=== PATIENT | female | born 1940 | race Caucasian/White ===

== ENCOUNTER → 2016-09-04 | Outpatient (CLI) | payer MEDICARE, OTHER ==
--- NOTE | 2016-09-04 10:30 | Diagnostic Imaging Report ---
PROCEDURE: CT sinuses without contrast TECHNIQUE: Multiple contiguous axial images were obtained through the sinuses without the use of intravenous contrast. Coronal and sagittal reformations were then performed. INDICATION: Chronic sinusitis. FINDINGS: Chronic sinusitis. COMPARISON: 02/03/2013 exam. FINDINGS: There is evidence of prior sinonasal surgery with resection of portions of the medial wall of the left maxillary sinus. Anterior and medial screws along the maxillary sinus wall bilaterally and anterior lateral similar screws and small plates also seen. There is no significant mucosal thickening in the maxillary sinuses or in the sphenoidal or frontal sinuses. There is mild mucosal thickening along the anterior ethmoidal air cells more on the left side. The mastoid air cells and the middle ear cavities appear clear. The orbits appear grossly unremarkable. The nasal cavity demonstrates mild nasal septal deviation anteriorly to the left. There is an aerated makenna bullosa on the right side. Mild mucosal thickening along the inferior turbinates seen with no significant narrowing of the nasal passages. IMPRESSION: Postsurgical changes in the maxillary sinuses. There is mild mucosal thickening in the anterior ethmoidal air cells, otherwise, the paranasal sinuses are clear. Dictated by: Dictated on workstation # [id number]
== END ==
LOC: RAD 09:35
PROVIDERS: ATTEND Otolaryngology Otolaryngology/Facial Plastic Surgery
DX: J32.2 Chronic ethmoidal sinusitis (principal)
CPT/HCPCS: 70486

== ENCOUNTER → 2016-09-24 | Outpatient (CLI) | payer MEDICARE, OTHER ==
--- NOTE | 2016-09-24 19:19 | Diagnostic Imaging Report ---
Bilateral screening mammogram The current study was also evaluated with a Computer Aided Detection (CAD) system. INDICATION: Screening. No current complaints stated on the questionnaire. COMPARISON: 11/30/14. FINDINGS: The breasts are composed of heterogeneously dense parenchyma which may decrease mammographic sensitivity. There are scattered benign-appearing calcifications. Allowing for technique and positional differences, no suspicious change is seen. IMPRESSION: Dense breasts with no definite change. ACR BI-RADS Category 2: Benign findings. Result letter will be mailed to the patient. Note: At least 10% of breast cancer is not imaged by mammography. Dictated by: Dictated on workstation # [id number]
== END ==
LOC: RAD 10:09
PROVIDERS: ATTEND Internal Medicine
DX: Z12.31 Encounter for screening mammogram for malignant neoplasm of breast (principal)
CPT/HCPCS: 77067

== ENCOUNTER 2017-02-26 10:47 | Outpatient (RCR) | payer MEDICARE, OTHER | END 2017-05-27 | disposition home or self-care (01) | LOC: CARD 10:47 | PROVIDERS: ATTEND Internal Medicine | DX: R00.2 Palpitations (principal) | CPT/HCPCS: 93225; 93226 ==

== ENCOUNTER → 2017-12-23 | Outpatient (CLI) | payer MEDICARE, OTHER ==
--- NOTE | 2017-12-23 12:29 | Diagnostic Imaging Report ---
INDICATION: Routine screening. Comparison is made with prior mammograms from 09/24/2016 and 11/30/2014. 2-D and 3-D bilateral screening mammography was performed. The current study was also evaluated with a Computer Aided Detection (CAD) system. FINDINGS: Scattered fibroglandular densities are identified bilaterally. Benign nodular densities in right breast are noted. No spiculated mass or malignant-appearing microcalcifications are seen. There are benign calcifications present. The axillae are unremarkable. IMPRESSION: No mammographic features suspicious for malignancy are identified. ACR BI-RADS Category 2: Benign findings. Result letter will be mailed to the patient. Note: At least 10% of breast cancer is not imaged by mammography. Dictated by: Dictated on workstation # [id number]
== END ==
LOC: RAD 11:05
PROVIDERS: ATTEND Internal Medicine
DX: Z12.31 Encounter for screening mammogram for malignant neoplasm of breast (principal)
CPT/HCPCS: 77067

== ENCOUNTER → 2019-01-20 | Outpatient (CLI) | payer MEDICARE, OTHER ==
--- NOTE | 2019-01-20 22:32 | Diagnostic Imaging Report ---
INDICATION: Medial foot pain. FINDINGS: Three-view right foot showed no fracture, dislocation or acute articular incongruity. IMPRESSION: No acute appearing abnormality. Dictated by: Dictated on workstation # [id number]
== END ==
LOC: RAD 16:59
PROVIDERS: ATTEND Nurse Practitioner Family
DX: M79.671 Pain in right foot (principal)
CPT/HCPCS: 73630

== ENCOUNTER 2019-04-07 10:51 | Outpatient (RCR) | payer MEDICARE, OTHER | END 2019-05-15 09:22 | disposition home or self-care (01) | PROVIDERS: ATTEND Internal Medicine | DX: M75.101 Unspecified rotator cuff tear or rupture of right shoulder, not specified as traumatic (principal) ==

== ENCOUNTER → 2019-05-05 | Outpatient (CLI) | payer MEDICARE, OTHER ==
--- NOTE | 2019-05-05 13:44 | Diagnostic Imaging Report ---
INDICATION: Routine screening. COMPARISON: Comparison is made with prior mammograms from 12/23/2017 and 09/24/2016. TECHNIQUE: 2-D and 3-D bilateral screening mammography was performed. The current study was also evaluated with a Computer Aided Detection (CAD) system. 3-D tomosynthesis was also performed and reviewed. FINDINGS: Both breasts are heterogeneously dense, limiting the sensitivity of mammography. There are benign calcifications bilaterally. No spiculated mass or malignant-appearing microcalcifications are seen. Axillae are unremarkable. IMPRESSION: No mammographic features suspicious for malignancy are identified. ACR BI-RADS Category 2: Benign findings. Result letter will be mailed to the patient. Note: At least 10% of breast cancer is not imaged by mammography. Dictated by: Dictated on workstation # [id number]
== END ==
LOC: RAD 10:52
PROVIDERS: ATTEND Internal Medicine
DX: Z12.31 Encounter for screening mammogram for malignant neoplasm of breast (principal)
CPT/HCPCS: 77067

== ENCOUNTER → 2020-02-06 | Outpatient (CLI) | payer MEDICARE, OTHER ==
--- NOTE | 2020-02-06 13:28 | Diagnostic Imaging Report ---
INDICATION: Postmenopausal state. COMPARISON: August 22, 2015 FINDINGS: AP Spine L1-L4: [BMD (g/cm2): 0.948] [T-Score: -2.1] [Z-Score: -0.3] [BMD Previous: 0.943] [BMD % Change: 0.5] LT Hip Neck: [BMD (g/cm2): 0.653] [T-Score: -2.8] [Z-Score: -0.6] LT Hip Total: [BMD (g/cm2):0.776] [T-Score:-1.8] [Z-Score: 0.2] [BMD Previous: 0.803] [BMD % Change: -3.4] RT Hip Neck: [BMD (g/cm2):0.702] [T-Score:-2.4] [Z-Score:-0.2] RT Hip Total: [BMD (g/cm2):0.758] [T-score:-2.0] [Z-Score:0.1] [BMD Previous:0.780] [BMD % Change:-2.8] *Indicates significant change from prior examination based on 95% confidence level. World Health Organization criteria for BMD interpretation classify patients as Normal (T-score at or above -1.0), Osteopenic (T-score between -1.0 and -2.5) or Osteoporotic (T-score at or below -2.5). LIMITATIONS AND MODIFICATION: None. FRACTURE RISK (FRAX SCORE): The ten year probability of (%): Major Osteoporotic Fracture: [22.4] Hip Fracture: [8.9] IMPRESSION: 1. Osteoporosis. 2. No significant change in bone mineral density since prior examination. 3. See below National Osteoporosis Foundation guidelines on when to potentially initiate pharmacologic therapy. Based on the National Osteoporosis Foundation Guidelines, pharmacologic treatment should be initiated in any of the following, unless clinical conditions suggest otherwise: * Any patient with prior fragility fracture of the hip or vertebrae. A spine fracture indicates 5X risk for subsequent spine fracture and 2X risk for subsequent hip fracture. * Osteoporosis (T-score <-2.5). * Postmenopausal women and men age 50 and older with low bone mass/osteopenia (T-score between -1.0 and -2.5) by DXA and 10-year major osteoporotic fracture greater than 20% or a 10-year probability of hip fracture greater than 3%. These fracture risks are supplied above in the FRAX score, if applicable. * Clinician judgement and/or patient preferences may indicate treatment for people with 10-year fracture probabilities above or below these levels. Dictated by: Dictated on workstation # [id number]
== END ==
LOC: RAD 12:30
PROVIDERS: ATTEND Nurse Practitioner Family
DX: M85.80 Other specified disorders of bone density and structure, unspecified site (principal); M81.0 Age-related osteoporosis without current pathological fracture; Z78.0 Asymptomatic menopausal state
CPT/HCPCS: 77080

== ENCOUNTER → 2020-08-07 | Outpatient (CLI) | payer MEDICARE, OTHER ==
--- NOTE | 2020-08-09 08:43 | Diagnostic Imaging Report ---
EXAMINATION: Digital mammogram bilateral screening with CAD. INDICATION: Screening. COMPARISON: This study was compared to the prior exams of 05/05/2019, 12/23/2017, and 09/24/2016. PERSONAL HISTORY: At this time, there are no current complaints. FINDINGS: The fibroglandular tissue in both breasts is heterogeneously dense. This does limit the sensitivity of this exam. Overall, there does not appear to have been any significant change when compared to the prior study. No primary or secondary sign of malignancy is noted. IMPRESSION: There is no radiographic evidence for malignancy. ACR BI-RADS Category 1: Negative. Result letter will be mailed to the patient. Note: At least 10% of breast cancer is not imaged by mammography. Dictated on workstation # [id number]
== END ==
LOC: RAD 15:01
PROVIDERS: ATTEND Internal Medicine
DX: Z12.31 Encounter for screening mammogram for malignant neoplasm of breast (principal)
CPT/HCPCS: 77063; 77067

== ENCOUNTER → 2020-09-02 | Outpatient (CLI) | payer MEDICARE, OTHER ==
--- NOTE | 2020-09-02 15:57 | Diagnostic Imaging Report ---
INDICATION: Low back pain. Lumbar spine. AP and lateral views of the lumbar spine show grade 1 spondylolisthesis at L5-S1. There is disc space narrowing at T12-L1 and L1-L2 with Modic changes of the opposing vertebral endplates and osteophytes forming at the vertebral body margins. IMPRESSION: Marked severe degenerative disc changes at T12-L1 and L1-L2. There are also advanced degenerative disc changes at L5-S1 with grade 1 spondylolisthesis and vacuum disc phenomenon. Dictated by: Dictated on workstation # [id number]
== END ==
LOC: RAD 15:12
PROVIDERS: ATTEND Nurse Practitioner Family
DX: M51.15 Intervertebral disc disorders with radiculopathy, thoracolumbar region (principal); M51.16 Intervertebral disc disorders with radiculopathy, lumbar region; M51.37 Other intervertebral disc degeneration, lumbosacral region; M43.17 Spondylolisthesis, lumbosacral region; I10 Essential (primary) hypertension
CPT/HCPCS: 72100

== ENCOUNTER 2020-10-10 10:48 | Outpatient (RCR) | payer MEDICARE, OTHER | END 2020-11-11 09:45 | disposition home or self-care (01) | PROVIDERS: ATTEND Nurse Practitioner Family | DX: M54.5 Low back pain (principal); M54.10 Radiculopathy, site unspecified; R53.1 Weakness; M79.606 Pain in leg, unspecified; M43.10 Spondylolisthesis, site unspecified ==

== ENCOUNTER → 2021-05-28 | Outpatient (CLI) | payer MEDICARE, OTHER ==
--- NOTE | 2021-05-28 14:46 | Diagnostic Imaging Report ---
INDICATION: Low back pain and spinous process tenderness. TIME OF EXAM: 2:07 PM. EXAMINATION: Three views of the lumbar spine were obtained. FINDINGS: Curvature and alignment of the lumbar spine is normal. Vertebral body heights are maintained. No acute compression fracture is seen. There is significant degenerative disc disease at the L1-L2 level with disc space narrowing and marginal spurring as well as vacuum disc phenomena. There is also L5-S1 degenerative disc disease. There is very slight anterolisthesis of L5 on S1. The abdominal aorta is heavily calcified. IMPRESSION: Lumbar spondylosis. No acute bony abnormality is detected. Dictated by: Dictated on workstation # [id number]
--- NOTE | 2021-05-28 15:12 | Diagnostic Imaging Report ---
INDICATION: Spinous process tenderness as well as left SI joint pain. TIME OF EXAM: 2:08 PM Multiple views of the sacroiliac joints were obtained. SI joints appear unremarkable. No ankylosis is seen. No sclerosis or osseous erosive changes are seen. IMPRESSION: No acute abnormality is detected. Dictated by: Dictated on workstation # [id number]
== END ==
LOC: RAD 13:35
PROVIDERS: ATTEND Nurse Practitioner Family
DX: M47.816 Spondylosis without myelopathy or radiculopathy, lumbar region (principal); M54.6 Pain in thoracic spine
CPT/HCPCS: 72100; 72202

== ENCOUNTER 2021-06-13 14:22 | Outpatient (RCR) | payer MEDICARE, OTHER | END 2021-06-16 | disposition home or self-care (01) | PROVIDERS: ATTEND Nurse Practitioner Family | DX: M54.16 Radiculopathy, lumbar region (principal) ==

== ENCOUNTER 2021-06-17 14:13 | Outpatient (RCR) | payer MEDICARE, OTHER | END 2021-07-14 | disposition home or self-care (01) | PROVIDERS: ATTEND Nurse Practitioner Family | DX: M54.16 Radiculopathy, lumbar region (principal) ==

== ENCOUNTER → 2021-07-07 | Outpatient (CLI) | payer MEDICARE, OTHER ==
--- NOTE | 2021-07-07 14:20 | Diagnostic Imaging Report ---
PROCEDURE: MRI lumbar spine. TECHNIQUE: Multiplanar, multisequence MRI of the lumbar spine was performed without contrast. INDICATION: Low back pain. Spondylolisthesis. COMPARISON: Lumbar spine radiographs 05/28/2021. FINDINGS: There are 5 lumbar-type vertebral bodies for the purposes of this report. Grade 1 retrolisthesis of L1 on L2 and anterolisthesis of L5 on S1. Modic type I degenerative endplate changes at L1-L2. Bone marrow signal is otherwise unremarkable. Visualized paravertebral soft tissues are unremarkable. No abnormal signal in the conus which terminates at L1-L2. Normal morphology of the cauda equina. T12-L1: Annular disc bulging and ligamentous hypertrophy result in mild spinal canal narrowing. Moderate right neural foraminal narrowing. L1-L2: The retrolisthesis combines with an annular disc bulge and ligamentous hypertrophy result in jauu-ky-jchrevjk spinal canal stenosis and bilateral neural foraminal narrowing. Moderate to severe bilateral neural foraminal narrowing. L2-L3: Annular disc bulge, ligamentous hypertrophy and facet arthropathy result in moderate spinal canal stenosis. Moderate bilateral neural foraminal narrowing. L3-L4: Annular disc bulge, ligamentous hypertrophy and facet arthropathy all result in moderate to severe spinal canal stenosis. Moderate bilateral neural foraminal narrowing. L4-L5: Central disc protrusion and ligamentous hypertrophy result in moderate to severe spinal canal stenosis. Moderate to severe bilateral neural foraminal narrowing. L5-S1: No substantial spinal canal or lateral recess narrowing. Severe right and moderate left neural foraminal narrowing. IMPRESSION: 1. Spondylotic changes result in multilevel high-grade spinal canal stenosis which is greatest at L3-L4 and L4-L5 where it is moderate to severe. 2. Multilevel high-grade neural foraminal narrowing detailed above. 3. Modic type I degenerative endplate changes at L1-L2. Dictated by: Dictated on workstation # [id number]
== END ==
LOC: RAD 12:30
PROVIDERS: ATTEND Orthopaedic Surgery Orthopaedic Surgery of the Spine
DX: M48.07 Spinal stenosis, lumbosacral region (principal); M51.26 Other intervertebral disc displacement, lumbar region; M47.816 Spondylosis without myelopathy or radiculopathy, lumbar region; M51.25 Other intervertebral disc displacement, thoracolumbar region; M48.05 Spinal stenosis, thoracolumbar region; M43.17 Spondylolisthesis, lumbosacral region
CPT/HCPCS: 72148

== ENCOUNTER → 2022-05-14 | Outpatient (CLI) | payer MEDICARE, OTHER | LOC: CARD 10:03 | PROVIDERS: ATTEND Nurse Practitioner Family | DX: I10 Essential (primary) hypertension (principal); R01.1 Cardiac murmur, unspecified | CPT/HCPCS: 93005 ==

== ENCOUNTER → 2022-05-20 | Outpatient (CLI) | payer MEDICARE, OTHER ==
[~2022-05-20] MED LIST: GADOTERATE 0.5 MMOL/ML (CLARISCAN) 15 ML VIAL IV ONE
--- NOTE | 2022-05-20 13:49 | Diagnostic Imaging Report ---
PROCEDURE: MR imaging of the brain with and without contrast. TECHNIQUE: Multiplanar, multisequence MR imaging of the brain was performed with and without contrast. INDICATION: Memory problems. COMPARISON: none FINDINGS: No acute ischemia, mass, or hemorrhage. No abnormal enhancement. Focal and confluent T2 hyperintense signal are seen in the periventricular and subcortical white matter. The ventricles and cortical sulci are mildly prominent. The basilar cisterns are symmetric and unremarkable. The sellar and suprasellar regions have a normal appearance. The brainstem and posterior fossa are unremarkable. The paranasal sinuses and mastoid air cells demonstrate normal signal characteristics. The globes and orbits are symmetric and unremarkable. The scalp and calvarium have a normal appearance. IMPRESSION: 1. No acute ischemia, mass, or hemorrhage. No abnormal enhancement. 2. Focal and confluent T2 hyperintense signal in the periventricular and subcortical white matter, most suggestive of chronic microvascular disease. 3. Mild parenchymal volume loss. Dictated by: Dictated on workstation # [id number]
== END ==
LOC: RAD 11:49
PROVIDERS: ATTEND Nurse Practitioner Family
DX: R41.3 Other amnesia (principal)
CPT/HCPCS: 70553

== ENCOUNTER → 2022-06-24 | Outpatient (CLI) | payer MEDICARE, OTHER | LOC: CARD 09:19 | PROVIDERS: ATTEND Internal Medicine Cardiovascular Disease | DX: I35.8 Other nonrheumatic aortic valve disorders (principal) | CPT/HCPCS: 93306 ==

== ENCOUNTER → 2022-07-14 | Outpatient (CLI) | payer MEDICARE, OTHER ==
[~2022-07-14] MED LIST changes: +CATHETER FLUSH 10 ML SYR IVP PRN; -GADOTERATE 0.5 MMOL/ML (CLARISCAN) 15 ML VIAL IV ONE; +REGADENOSON 0.4 MG/5 ML SYR (LEXISCAN) IV ONE
[2022-07-14 09:27] VITALS: BP 163/85
--- NOTE | 2022-07-14 18:02 | STRESS TEST ---
DATE OF SERVICE: 07/14/2022 RESTING AND POST REGADENOSON TECHNETIUM-99M TETROFOSMIN SPECT CT IMAGING ORDERING PHYSICIAN: Dr. Vargas. PRIMARY PHYSICIAN: Dr. Daniel. CLINICAL DIAGNOSIS: Shortness of breath. Baseline images were carried out after injection of 10.96 mCi technetium-99m tetrofosmin. This was followed by 0.4 mg regadenoson and 31.1 mCi of technetium-99m tetrofosmin for stress imaging. The electrocardiogram showed sinus rhythm at baseline. It did not change significantly with regadenoson infusion. The patient tolerated the procedure well. Review of images at rest and following stress does not indicate any significant perfusion defects consistent with myocardial ischemia or infarction. Gated images show normal global left ventricular systolic function with normal regional wall motion. Left ventricular ejection fraction is calculated to be 66%. CONCLUSIONS: 1. No evidence of any significant myocardial ischemia or infarction on this study. 2. Normal regional wall motion. 3. Normal global left ventricular systolic function with a calculated ejection fraction of 66%. Job ID: [id number] DocumentID: [id number] Dictated Date: 07/14/2022 17:30:37 Datastage Consultant Date: 07/14/2022 18:01:00 Dictated By: EDGARDO VARGAS MD; YAZ; FACP; FACC;
== END ==
LOC: CARD 07:38
PROVIDERS: ATTEND Internal Medicine Cardiovascular Disease
DX: R06.09 Other forms of dyspnea (principal)
CPT/HCPCS: 78452; 93017; A9502

== ENCOUNTER 2022-08-20 19:07 | Emergency (ER) | payer MEDICARE, OTHER ==
[~2022-08-20] VITALS: Ht 165.1 cm; Wt 69.2 kg
[2022-08-20] MEDS ORDERED: LOSA100T57 (19:17)
[2022-08-20] MEDS ORDERED: ESCI-2 (19:17)
[2022-08-20] MEDS ORDERED: ATOR10TA66 (19:17)
[2022-08-20] MEDS ORDERED: IRBE150T23 (19:17)
[2022-08-20] MEDS ORDERED: hydrALAZINE (APESOLINE) 20 MG/ML VIAL IV ONE (19:30)
[2022-08-20 19:31] LABS: HEMATOCRIT 42 % (35-52); HEMOGLOBIN 13.8 g/dL (11.5-16.0); MEAN CORPUSCULAR HEMOGLOBIN 31 pg (25-34); MEAN CORPUSCULAR HGB CONC 33 g/dL (32-36); MEAN CORPUSCULAR VOLUME 93 fL (80-99); MEAN PLATELET VOLUME 9.9 fL (9.0-12.2); PLATELET COUNT 234 10^3/uL (130-400); WHITE BLOOD COUNT 6.4 10^3/uL (4.3-11.0)
--- NOTE | 2022-08-20 19:38 | ED Cardiac General ---
History of Present Illness General Chief Complaint: Cardiac/General Problems Stated Complaint: BLOOD PRESHURE HIGH Nursing Triage Note: c/o headache resolved, high blood pressure. Source: patient History of Present Illness Date Seen by Provider: Aug 20, 2022 Time Seen by Provider: 19:22 Initial Comments PT ARRIVES VIA POV FROM HOME WITH DAUGHTER PT HAS HISTORY OF HTN--IS PRESCRIBED IRBESARTAN SHE WAS ON 300 MG DAILY, AND IT WAS DECREASED TO 150 MG DAILY ON 07/15/22, DUE TO ORTHOSTATIC HYPOTENSION--STATES HER BP DROPPED 20 POINTS WHEN SHE STOOD UP. SEEN BY DR. CROSS'S [employer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o evidence of any significant myocardial ischemia or infarction on this study. 2. Normal regional wall motion. 3. Normal global left ventricular systolic function with a calculated ejection fraction of 66%. Allergies and Home Medications Allergies Coded Allergies: NKANo Known Allergies (Unverified Allergy, Unknown, 07/29/06) Patient Home Medication List Home Medication List Reviewed: Yes Atorvastatin Calcium (Atorvastatin Calcium) 10 Mg Tablet, (Reported) Entered as Reported by: ABDOULAYE HIDALGO on 08/20/221916 Last Action: New Order Escitalopram Oxalate (Escitalopram Oxalate) 10 Mg Tablet, (Reported) Entered as Reported by: ABDOULAYE HIDALGO on 08/20/221916 Last Action: New Order Hydralazine HCl (Hydralazine HCl) 10 Mg Tablet, 10 MG PO TID PRN for BLOOD PRESSURE Prescribed by: TATA KNIGHT on 08/20/222022 Irbesartan (Irbesartan) 150 Mg Tablet, (Reported) Entered as Reported by: ABDOULAYE HIDALGO on 08/20/221916 Last Action: New Order Losartan Potassium (Losartan Potassium) 100 Mg Tablet, (Reported) Entered as Reported by: ABDOULAYE HIDALGO on 08/20/221916 Last Action: New Order Review of Systems Review of Systems Constitutional: see HPI EENTM: No Symptoms Reported Respiratory: No Symptoms Reported Cardiovascular: See HPI Gastrointestinal: No Symptoms Reported Genitourinary: No Symptoms Reported Musculoskeletal: see HPI Skin: no symptoms reported Psychiatric/Neurological: See HPI Endocrine: No Symptoms Reported Hematologic/Lymphatic: No Symptoms Reported Past Avcbltu-Jfemlo-Swxbnt Hx Patient Social History Tobacco Use?: No Substance use?: No Alcohol Use?: No Pt feels they are or have been: No Immunizations Up To Date First/Initial COVID19 Vaccinat: x3 Past Medical History Surgery/Hospitalization HX: htn, hld, depression, cholecystectomy Surgeries: Yes (HANSEL 07/[address] CARMONA; COLONOSCOPIES/POLYPECTOMY-LAST ONE 06/2015) Gallbladder Respiratory: No Cardiac: Yes High Cholesterol, Hypertension Neurological: No [employer] History: Menopausal Genitourinary: No Gastrointestinal: Yes (S/P HANSEL) Polyps, Gall Bladder Disease Musculoskeletal: No Endocrine: No HEENT: Yes Hearing Impairment: Hard of Hearing, Bilateral Hearing Aide Cancer: No Psychosocial: Yes Anxiety, Depression Integumentary: No Blood Disorders: No Family Medical History STRESS TEST BY DR. PAINTING--07/14/22 CONCLUSIONS: 1. No evidence of any significant myocardial ischemia or infarction on this study. 2. Normal regional wall motion. 3. Normal global left ventricular systolic function with a calculated ejection fraction of 66%. Physical Exam Vital Signs Vital Signs - First Documented 08/20/22 19:14 Temp 36.1 Pulse 78 Resp 16 B/P (MAP) 211/94 (133) Pulse Ox 96 O2 Delivery Room Air Capillary Refill : Less Than 3 Seconds Height, Weight, BMI Height: 5'4.00" Weight: 153lbs. oz. 69.536674me; 25.00 BMI Method: General Appearance: No Apparent Distress, WD/WN, Anxious HEENT: PERRL/EOMI Neck: Full Range of Motion, Normal Inspection, Non Tender, Supple; No Carotid Bruit, No JVD Respiratory: Normal Breath Sounds, No Accessory Muscle Use, No Respiratory Distress Cardiovascular: Regular Rate, Rhythm, No Edema, No JVD, No Murmur, Normal Peripheral Pulses Gastrointestinal: Non Tender, Soft Extremity: Normal Capillary Refill, Normal Inspection, Normal Range of Motion, Non Tender, No Calf Tenderness, No Pedal Edema Neurologic/Psychiatric: Alert, Oriented x3, No Motor/Sensory Deficits, plastic fabricator II- XII Norm as Tested Skin: Normal Color, Warm/Dry Progress/Results/Core Measures Results/Orders Lab Results Laboratory Tests Test 08/20/22 19:24 Range/Units White Blood Count 6.4 4.3-11.0 10^3/uL Red Blood Count 4.52 3.80-5.11 10^6/uL Hemoglobin 13.8 11.5-16.0 g/dL Hematocrit 42 35-52 % Mean Corpuscular Volume 93 80-99 fL Mean Corpuscular Hemoglobin 31 25-34 pg Mean Corpuscular Hemoglobin Concent 33 32-36 g/dL Red Cell Distribution Width 12.9 10.0-14.5 % Platelet Count 234 130-400 10^3/uL Mean Platelet Volume 9.9 9.0-12.2 fL Prothrombin Time 12.9 12.2-14.7 SEC INR Comment 0.9 0.8-1.4 Activated Partial Thromboplast Time 33 24-35 SEC Sodium Level 137 135-145 MMOL/L Potassium Level 4.1 3.6-5.0 MMOL/L Chloride Level 99 98-107 MMOL/L Carbon Dioxide Level 27 21-32 MMOL/L Anion Gap 11 5-14 MMOL/L Blood Urea Nitrogen 19 H 7-18 MG/DL Creatinine 0.89 0.60-1.30 MG/DL Estimat Glomerular Filtration Rate 64 BUN/Creatinine Ratio 21 Glucose Level 104 70-105 MG/DL Calcium Level 9.4 8.5-10.1 MG/DL Corrected Calcium 9.2 8.5-10.1 MG/DL Magnesium Level 2.2 1.6-2.4 MG/DL Total Bilirubin 0.3 0.1-1.0 MG/DL Aspartate Amino Transf (AST/SGOT) 26 5-34 U/L Alanine Aminotransferase (ALT/SGPT) 18 0-55 U/L Alkaline Phosphatase 98 40-136 U/L Total Creatine Kinase 61 29-168 U/L Creatine Kinase MB 1.1 <6.6 NG/ML Myoglobin 32.7 10.0-92.0 NG/ML Troponin I < 0.028 <0.028 NG/ML B-Type Natriuretic Peptide 95.5 <100.0 PG/ML Total Protein 7.9 6.4-8.2 GM/DL Albumin 4.2 3.2-4.5 GM/DL My Orders Orders - TATA KNIGHT DO Ed Iv/Invasive Line Start (08/20/22 19:21) Ekg Tracing (08/20/22 19:21) O2 (08/20/22 19:21) Monitor-Rhythm Ecg Trace Only (08/20/22 19:21) Bnp Jaycee (08/20/22 19:21) Cbc No Diff (08/20/22 19:21) Comprehensive Metabolic Panel (08/20/22 19:21) Creatine Kinase (08/20/22 19:21) Creatine Kinase Mb (08/20/22 19:21) Magnesium (08/20/22 19:21) Protime With Inr (08/20/22 19:21) Partial Thromboplastin Time (08/20/22 19:21) Myoglobin Serum (08/20/22 19:21) Troponin I Jaycee (08/20/22 19:21) Chest 1 View, Ap/Pa Only (08/20/22 19:21) Hydralazine Injection (Apresoline Inject (08/20/22 19:30) Medications Given in ED Current Medications Medications Dose Ordered Sig/Jair Route Start Time Stop Time Status Last Admin Dose Admin Hydralazine HCl 10 mg ONCE ONCE IV 08/20/22 19:30 08/20/22 19:31 DC 08/20/22 19:42 10 MG Vital Signs/I&O 08/20/22 19:14 Temp 36.1 Pulse 78 Resp 16 B/P (MAP) 211/94 (133) Pulse Ox 96 O2 Delivery Room Air Blood Pressure Mean: 133 Progress Progress Note : Progress Note GIVEN: -HYDRALAZINE BP DOWN TO 149/79, HR IN 70'S PT ASYMPTOMATIC DISCUSSED TEST RESULTS, ANTICIPATED COURSE, MEDICATIONS, NEED FOR FOLLOW UP AND RETURN PRECAUTIONS DISCUSSED WITH PT AND DAUGHTER REVIEWED OLD RECORDS, ALL OUTPATIENT PROCEDURES. Initial ECG Impression Date: Aug 20, 2022 Initial ECG Impression Time: 19:24 Initial ECG Rate: 65 Initial ECG Rhythm: Normal Sinus Initial ECG Intervals MS 202 QT 106 QT/QTC 415/432 Initial ECG Impression: 1st Degree AV Block Initial ECG Comparisson: No Previous ECG Available Comment INTERPRETED BY ME Diagnostic Imaging Comments CXR--PER RADIOLOGIST REPORT AT 1944 COMPARISON: None available. FINDINGS: The lungs are clear without edema or pneumonia. No pleural effusion or pneumothorax. Heart size is normal. IMPRESSION: Clear lungs. Reviewed: Reviewed by Me Departure Impression Primary Impression: Uncontrolled hypertension Disposition: HOME, SELF-CARE Condition: Improved Departure-Patient Inst. Decision time for Depature: 20:21 Referrals: TICO CROSS MD (PCP/Family) Primary Care Physician EDGARDO PAINTING MD FACP FACC CCDS Patient Instructions: High Blood Pressure ED Add. Discharge Instructions: CONTINUE IRBESARTAN 150 MG DAILY TAKE THE HYDRALAZINE EVERY 8 HOURS NEEDED FOR SYSTOLIC BLOOD PRESSURE ( TOP NUMBER) GREATER THAN 160, OR DIASTOLIC BLOOD PRESSURE ( BOTTOM NUMBER) GREATER THAN [address] PAINTING FOR FURTHER CARE--CALL IN THE MORNING TO SCHEDULE AN APPOINTMENT. All discharge instructions reviewed with patient and/or family. Voiced understanding. Scripts Hydralazine HCl (Hydralazine HCl) 10 Mg Tablet 10 MG PO TID PRN for BLOOD PRESSURE, #15 TAB TAKE NEEDED THREE TIMES A DAY FOR SYSTOLIC BP > 160 OR DIASTOLIC BP > 100 Prov: TATA KNIGHT DO 08/20/22 TATA KNIGHT DO Aug 20, 2022 19:38
--- NOTE | 2022-08-20 19:41 | Diagnostic Imaging Report ---
EXAMINATION: Chest 1 view. HISTORY: Chest pain. COMPARISON: None available. FINDINGS: The lungs are clear without edema or pneumonia. No pleural effusion or pneumothorax. Heart size is normal. IMPRESSION: Clear lungs. Dictated by: Dictated on workstation # [id number]
[2022-08-20 19:43] LABS: INR 0.9 (0.8-1.4); PROTHROMBIN TIME PATIENT 12.9 SEC (12.2-14.7)
[2022-08-20 19:49] LABS: ALANINE AMINOTRANSFERASE 18 U/L (0-55); ALBUMIN 4.2 GM/DL (3.2-4.5); ALKALINE PHOSPHATASE 98 U/L (40-136); BILIRUBIN,TOTAL 0.3 MG/DL (0.1-1.0); BUN/CREATININE RATIO 21; CALCIUM 9.4 MG/DL (8.5-10.1); CARBON DIOXIDE 27 MMOL/L (21-32); CHLORIDE 99 MMOL/L (98-107); CREATINE KINASE 61 U/L (29-168); CREATININE SERUM 0.89 MG/DL (0.60-1.30); GFR ESTIMATED 64; GLUCOSE 104 MG/DL (70-105); MAGNESIUM 2.2 MG/DL (1.6-2.4); POTASSIUM 4.1 MMOL/L (3.6-5.0); SODIUM 137 MMOL/L (135-145); TOTAL PROTEIN 7.9 GM/DL (6.4-8.2)
[2022-08-20 19:57] LABS: CREATINE KINASE MB 1.1 NG/ML (<6.6)
[2022-08-20] MEDS ORDERED: HYDR-3922 PO (20:23)
[2022-08-20 20:26] VITALS: BP 149/79
== END 2022-08-20 20:41 | disposition home or self-care (01) ==
LOC: EDUNIT# 19:07 → ER 19:11
DX: I10 Essential (primary) hypertension (principal); Z79.899 Other long term (current) drug therapy
CPT/HCPCS: 36415; 71045; 80053; 82550; 82553; 83735; 83874; 83880; 84484; 85027; 85610; 85730; 93005; 93041